=== PATIENT | female | born 2000 | race Caucasian/White ===

== ENCOUNTER 2018-07-07 21:11 | Emergency (ER) | payer BC ==
[~2018-07-07] VITALS: Ht 162.6 cm; Wt 50.0 kg
[2018-07-07 21:15] VITALS: TEMP 99.1
[2018-07-07 21:42] LABS: BASO # 0.1 (0.0-0.2); BASO % 0.8 % (0.0-2.0); EOS # 0.2 (0.0-0.7); EOS % 3.7 % (0-4.0); GRAN # 2.7 (1.4-6.5); GRAN % 43.8 % (42.2-75.2); HEMATOCRIT 42.4 % (35.0-45.0); HEMOGLOBIN 14.8 g/dl (12.0-15.0); LYMPH # 2.8 (1.2-3.4); LYMPH % 45.2 % (20.0-51.0); MEAN CELL VOLUME 89 fl (80.0-95.0); MEAN CORPUSCULAR HEMOGLOBIN 31 pg (26.0-32.0); MEAN CORPUSCULAR HGB CONC 35 g/dl (33.0-37.0); MONO # 0.4 (0.1-0.6); MONO % 6.3 % (1.7-9.3); PLATELET COUNT 219 K/mm3 (130-400); RED BLOOD COUNT 4.75 M/mm3 (4.10-5.30); REDCELL DISTRIBUTION WIDTH-CV 12.8 % (11.5-14.5)
[2018-07-07 21:55] LABS: ALANINE AMINOTRANSFERASE 13 U/L (9-52); ALBUMIN 4.4 gm/dL (3.5-5.0); ALKALINE PHOSPHATASE 65 U/L (50-136); ANION GAP 7 mmol/L (7-16); AST,SGOT 33 U/L (15-37); BILIRUBIN,TOTAL 0.4 mg/dL (0.0-1.0); BLOOD UREA NITROGEN 10 mg/dL (7-17); CALCIUM 9.1 mg/dL (8.4-10.2); CARBON DIOXIDE 24 mmol/L (22-30); CHLORIDE 109 mmol/L (98-107); CREATININE, serum 0.67 (0.52-1.25); GLUCOSE 84 mg/dL (74-106); LIPASE 136 U/L (23-300); POTASSIUM 3.8 mmol/L (3.4-5.0); SODIUM 139 mmol/L (137-145); TOTAL PROTEIN 8.2 gm/dL (6.4-8.2)
[2018-07-07 21:57] LABS: C-REACTIVE PROTEIN < 0.5 mg/dL (0.0-0.9)
[2018-07-07 23:08] VITALS: BP 117/77; PULSE 76
== END 2018-07-07 23:12 | disposition home or self-care (01) ==
LOC: COL.ER 21:11
PROVIDERS: Emergency Medicine
DX: R11.0 Nausea (principal); R10.84 Generalized abdominal pain
CPT/HCPCS: J1885; J2060; J2405; J7030